=== PATIENT | male | born 1995 | race Caucasian/White ===

== ENCOUNTER 2018-05-16 12:48 | Emergency (ER) | payer OTHER ==
[~2018-05-16] VITALS: Ht 188 cm; Wt 77.1 kg
[2018-05-16] MEDS ORDERED: KEFLEX500 M1 PO (15:25)
[2018-05-16 15:41] VITALS: BP 112/60
== END 2018-05-16 15:42 | disposition home or self-care (01) ==
LOC: ER 12:48
DX: S66.121A Laceration of flexor muscle, fascia and tendon of left index finger at wrist and hand level, initial encounter (principal); W26.0XXA Contact with knife, initial encounter; Y92.511 Restaurant or cafe as the place of occurrence of the external cause; Y93.89 Activity, other specified; Y99.8 Other external cause status

== ENCOUNTER 2018-05-25 16:07 | Emergency (ER) | payer OTHER ==
[~2018-05-25] VITALS: Ht 188 cm; Wt 77.1 kg
[~2018-05-25 16:07] MED LIST: KEFLEX500 M1 PO
[2018-05-25 17:19] VITALS: BP 117/63
== END 2018-05-25 17:21 | disposition home or self-care (01) ==
LOC: ER 16:07
DX: S61.211D Laceration without foreign body of left index finger without damage to nail, subsequent encounter (principal); X58.XXXD Exposure to other specified factors, subsequent encounter